=== PATIENT | male | born 1945 | race Caucasian/White ===

== ENCOUNTER 2018-04-10 18:10 | Inpatient (IN) | payer MEDICARE, BC ==
[2018-04-10] MEDS ORDERED: Sodium Chloride 0.9% 1,000 ML IV SCH (18:15)
--- NOTE | 2018-04-10 18:35 | EDM.PDOC ---
ED HPI GENERAL MEDICAL PROBLEM - General Chief Complaint: General Stated Complaint: unresponsive Time Seen by Provider: 04/10/18 18:10 Source of Information: Reports: Patient, EMS History Limitations: Reports: No Limitations - History of Present Illness INITIAL COMMENTS - FREE TEXT/NARRATIVE: This patient is a 72 year old male that arrives via EMS. Patient lives with per EMS. EMS reports that the reported the patient was fine at 1:30pm today, laid on the couch to sleep. She tried to wake him about 4pm and he would not respond. EMS reported upon their arrival BLS crew, that the patient was difficulty wake, but they were able to by yelling at him and shaking him. They report blood pressure on scene was 68/36 and BS was 105. Our EMS ALS intercepted patient. Upon arrival the patient BP is 94/52. The patient is awake and alert and oriented. The patient reports he was sleeping on his couch and he is hard of hearing. The patient denies any complaints. He denies berumen, dizziness, n, v, d, f, cp, soa, neck pain, neck stiffness, abd pain, urinary/bowel changes. EMS has reported that upon arrival to the patients home there is feces in a bucket on the floor, urine odors, and there is urine all over the couch the patient was laying on. They report the house is very messy. Onset Date: 04/10/18 Duration: Hour(s): (2) Severity: Mild Improves with: Reports: None Worsens with: Reports: None Associated Symptoms: Denies: Confusion, Chest Pain, Cough, cough w sputum, Diaphoresis, Fever/Chills, Headaches, Loss of Appetite, Malaise, Nausea/Vomiting , Rash, Seizure, Shortness of Breath, Syncope, Weakness - Related Data Allergies Allergy/AdvReac Type Severity Reaction Status Date / Time pork Allergy Hives Uncoded 04/10/18 18:25 Home Meds: Home Meds Allopurinol [Zyloprim] 300 mg PO DAILY 04/10/18 [History] Aspirin [Halfprin] 81 mg PO DAILY 04/10/18 [History] Cholecalciferol (Vitamin D3) [Vitamin D3] 2,000 unit PO DAILY 04/10/18 [History] Cyanocobalamin (Vitamin B12) [Vitamin B12] 1,000 mcg PO DAILY 04/10/18 [History] Furosemide [Lasix] 40 mg PO BID 04/10/18 [History] Gabapentin [Neurontin] 300 mg PO BID 04/10/18 [History] Insulin Aspart [Novolog Flexpen] 40 units SUBCUT TIDMEALS 04/10/18 [History] Insulin Glarg,Human.Rec.Analog [Lantus Solostar] 70 unit SUBCUT BEDTIME [History] Losartan/Hydrochlorothiazide [Hyzaar 100-12.5 Tablet] 1 tab PO DAILY 04/10/18 [ History] Metoprolol Tartrate [Lopressor] 50 mg PO DAILY 04/10/18 [History] Pioglitazone [Actos] 15 mg PO DAILY 04/10/18 [History] atorvaSTATin Calcium [Atorvastatin Calcium] 80 mg PO DAILY 04/10/18 [History] ED ROS GENERAL - Review of Systems Review Of Systems: See Below Constitutional: Reports: Weakness (generally). Denies: Fever HEENT: Reports: No Symptoms Respiratory: Reports: No Symptoms Cardiovascular: Reports: No Symptoms Endocrine: Reports: No Symptoms GI/Abdominal: Reports: No Symptoms : Reports: No Symptoms Musculoskeletal: Reports: No Symptoms Skin: Reports: No Symptoms Neurological: Reports: No Symptoms Psychiatric: Reports: No Symptoms Hematologic/Lymphatic: Reports: No Symptoms Immunologic: Reports: No Symptoms ED EXAM, GENERAL - Physical Exam Exam: See Below Exam Limited By: No Limitations General Appearance: Alert, WD/WN, No Apparent Distress, Other (Disheveled appearance. Patient has what appears to be dirt and feces under nails and on hands. Patient does have odorous smell. ) Eye Exam: Bilateral Eye: Normal Inspection, PERRL Ears: Normal External Exam, Normal Canal, Hearing Grossly Normal, Normal TMs Ear Exam: Bilateral Ear: Auricle Normal, Canal Normal, TM normal Nose: Normal Inspection, Normal Mucosa, No Blood Throat/Mouth: Normal Inspection, Normal Lips, Normal Teeth, Normal Gums, Normal Oropharynx, Normal Voice, No Airway Compromise Head: Atraumatic, Normocephalic Neck: Normal Inspection, Supple, Non-Tender, Full Range of Motion Respiratory/Chest: No Respiratory Distress, Lungs Clear, Normal Breath Sounds, No Accessory Muscle Use Cardiovascular: Normal Peripheral Pulses, Regular Rate, Rhythm, No Edema, No Gallop, No JVD, No Murmur, No Rub Peripheral Pulses: 2+: Radial (L), Radial (R), Posterior Tibial (L), Posterior Tibial (R) GI/Abdominal: Normal Bowel Sounds, Soft, Non-Tender, No Organomegaly, No Distention, No Abnormal Bruit, No Mass, Pelvis Stable (Male) Exam: Deferred Rectal (Males) Exam: Deferred Back Exam: Normal Inspection, Full Range of Motion. No: CVA Tenderness (L), CVA Tenderness (R) Extremities: Normal Inspection, Normal Range of Motion, Non-Tender, No Pedal Edema, Normal Capillary Refill Neurological: Alert, Oriented, CN II-XII Intact, Normal Cognition, No Motor/ Sensory Deficits Psychiatric: Normal Affect, Normal Mood Skin Exam: Warm, Dry, Intact, Normal Color, No Rash Lymphatic: No Adenopathy EKG INTERPRETATION EKG Date: 04/10/18 Time: 18:22 Rate (Beats/Min): 99 QRS: RBBB Course - Vital Signs Last Recorded V/S: Last Vital Signs Temp 97.9 F 04/10/18 21:00 Pulse 93 04/10/18 21:00 Resp 18 04/10/18 21:00 BP 132/43 L 04/10/18 21:00 Pulse Ox 98 04/10/18 21:00 - Orders/Labs/Meds Orders: Active Orders 24 hr Category Date Time Status Chest 2V [CR] Stat Exams 04/10/18 17:43 Taken Head wo Cont [CT] Stat Exams 04/10/18 18:22 Taken CULTURE BLOOD [BC] Stat Lab 04/10/18 18:35 Received CULTURE BLOOD [BC] Stat Lab 04/10/18 19:05 Received UA W/MICROSCOPIC [URIN] Stat Lab 04/10/18 20:26 Ordered Sodium Chloride 0.9% [Normal Saline] 1,000 ml Med 04/10/18 18:15 Active IV ASDIRECTED Blood Culture x2 Reflex Set [OM.PC] Stat Oth 04/10/18 18:22 Ordered EKG 12 Lead [EK] Routine Ther 04/10/18 17:43 Ordered Medication Orders Acetaminophen (Tylenol) 650 mg PO Q4H PRN PRN Reason: Pain (Mild 1-3)/fever Hydrocodone Bitart/Acetaminophen (Crocker 325-5 Mg) 2 tab PO Q4H PRN PRN Reason: Pain (moderate 4-6) Allopurinol (Zyloprim) 300 mg PO DAILY [facility] Aspirin (Halfprin) 81 mg PO DAILY [facility] Cyanocobalamin (Vitamin B12) 1,000 mcg PO DAILY [facility] Enoxaparin Sodium (Lovenox) 30 mg SUBCUT Q24H [facility] Furosemide (Lasix) 40 mg PO BID [facility] Gabapentin (Neurontin) 300 mg PO BID [facility] Sodium Chloride (Normal Saline) 1,000 mls @ 999 mls/hr IV ASDIRECTED [facility] Last Admin: 04/10/18 18:20 Dose: 999 mls/hr Sodium Chloride (Normal Saline) 1,000 mls @ 125 mls/hr IV ASDIRECTED [facility] Ibuprofen (Motrin) 600 mg PO Q6H PRN PRN Reason: Pain (mild 1-3) Insulin Human Regular (Novolin R) 0 unit SUBCUT QIDACANDBED [facility]; Protocol Metoprolol Tartrate (Lopressor) 50 mg PO DAILY [facility] Morphine Sulfate (Morphine) 2 mg IVPUSH Q2H PRN PRN Reason: Pain (severe 7-10) Non-Formulary Medication (Atorvastatin Calcium [Atorvastatin Calcium]) 80 mg PO DAILY [facility] Non-Formulary Medication (Cholecalciferol (Vitamin D3) [Vitamin D3]) 2,000 unit PO DAILY [facility] Non-Formulary Medication (Insulin Glarg,Human.Rec.Analog) 70 unit SUBCUT BEDTIME [facility] Non-Formulary Medication (Losartan/Hydrochlorothiazide [Hyzaar 100-12.5 Tablet] ) 1 tab PO DAILY [facility] Non-Formulary Medication (Pioglitazone [Actos]) 15 mg PO DAILY [facility] Ondansetron HCl (Zofran) 4 mg IV Q6H PRN PRN Reason: Nausea/Vomiting Temazepam (Restoril) 15 mg PO BEDTIME PRN PRN Reason: Sleep Labs: Laboratory Tests 04/10/18 04/10/18 04/10/18 Range/Units 18:15 18:15 18:35 WBC 11.2 H (5.0-10.0) 10^3/uL RBC 4.32 L (4.50-6.00) 10^6/uL Hgb 12.0 L (14.0-18.0) g/dL Hct 37.4 L (40.0-54.0) % MCV 86.6 (82.0-94.0) fL MCH 27.8 (27.0-32.0) pg MCHC 32.1 L (33.0-38.0) g/dL RDW Coeff of Howie 16.8 H (11.0-15.0) % Plt Count 184 (150-400) 10^3/uL Add Manual Diff Yes Neutrophils % (Manual) 89 H (35-85) % Band Neutrophils % 1 (0-5) % Lymphocytes % (Manual) 4 L (21-55) % Monocytes % (Manual) 5 (2-12) % Eosinophils % (Manual) 0 (0-5) % Basophils % (Manual) 1 (0-3) % ABG pH (7.35-7.45) ABG pCO2 (35-45) mm/Hg0 ABG pO2 (80-100) mm/Hg ABG HCO3 (22.0-26.0) mm/L ABG O2 Saturation (95-98) % ABG Base Excess (-2.0-3.0) O2 Delivery Device Sodium 134 L (136-145) mEq/L Potassium 3.9 (3.5-5.0) mEq/L Chloride 97 L (98-106) mEq/L Carbon Dioxide 25 (21-32) mmol/L BUN 123 H* (7-18) mg/dL Creatinine 3.6 H* (0.7-1.3) mg/dL Est Cr Clr Drug Dosing 20.34 mL/min Estimated GFR (MDRD) 17 L (>=60) mL/min Glucose 103 H (75-99) mg/dL Lactic Acid 1.7 (0.4-2.0) mmol/L Calcium 8.8 (8.4-10.1) mg/dL Total Bilirubin 0.3 (0.0-1.0) mg/dL AST 18 (15-37) U/L ALT 21 (12-78) U/L Alkaline Phosphatase 103 (46-116) U/L Lactate Dehydrogenase 80 L (100-190) U/L Creatine Kinase 73 (35-232) U/L Troponin I 0.170 H (0.00-0.06) ng/mL Total Protein 7.0 (6.4-8.2) g/dL Albumin 3.2 L (3.4-5.0) g/dL Urine Color (YELLOW) Urine Appearance (CLEAR) Urine pH (4.5-8.0) Ur Specific Colo (1.003-1.020) Urine Protein (NEGATIVE) mg/dL Urine Glucose (UA) (NEGATIVE) mg/dL Urine Ketones (NEGATIVE) mg/dL Urine Occult Blood (NEGATIVE) Urine Nitrite (NEGATIVE) Urine Bilirubin (NEGATIVE) Urine Urobilinogen (0.2-1.0) EU/dL Ur Leukocyte Esterase (NEGATIVE) Urine RBC (0-5) /HPF Urine WBC (0-5) /HPF Ur Epithelial Cells (NOT SEEN) /HPF Urine Mucus (NOT SEEN) /HPF 04/10/18 04/10/18 Range/Units 19:05 20:26 WBC (5.0-10.0) 10^3/uL RBC (4.50-6.00) 10^6/uL Hgb (14.0-18.0) g/dL Hct (40.0-54.0) % MCV (82.0-94.0) fL MCH (27.0-32.0) pg MCHC (33.0-38.0) g/dL RDW Coeff of Howie (11.0-15.0) % Plt Count (150-400) 10^3/uL Add Manual Diff Neutrophils % (Manual) (35-85) % Band Neutrophils % (0-5) % Lymphocytes % (Manual) (21-55) % Monocytes % (Manual) (2-12) % Eosinophils % (Manual) (0-5) % Basophils % (Manual) (0-3) % ABG pH 7.40 (7.35-7.45) ABG pCO2 37 (35-45) mm/Hg0 ABG pO2 81 (80-100) mm/Hg ABG HCO3 22.6 (22.0-26.0) mm/L ABG O2 Saturation 96 (95-98) % ABG Base Excess -2.0 (-2.0-3.0) O2 Delivery Device Room air Sodium (136-145) mEq/L Potassium (3.5-5.0) mEq/L Chloride (98-106) mEq/L Carbon Dioxide (21-32) mmol/L BUN (7-18) mg/dL Creatinine (0.7-1.3) mg/dL Est Cr Clr Drug Dosing mL/min Estimated GFR (MDRD) (>=60) mL/min Glucose (75-99) mg/dL Lactic Acid (0.4-2.0) mmol/L Calcium (8.4-10.1) mg/dL Total Bilirubin (0.0-1.0) mg/dL AST (15-37) U/L ALT (12-78) U/L Alkaline Phosphatase (46-116) U/L Lactate Dehydrogenase (100-190) U/L Creatine Kinase (35-232) U/L Troponin I (0.00-0.06) ng/mL Total Protein (6.4-8.2) g/dL Albumin (3.4-5.0) g/dL Urine Color Yellow (YELLOW) Urine Appearance Clear (CLEAR) Urine pH 5.5 (4.5-8.0) Ur Specific Colo 1.010 (1.003-1.020) Urine Protein Negative (NEGATIVE) mg/dL Urine Glucose (UA) Negative (NEGATIVE) mg/dL Urine Ketones Negative (NEGATIVE) mg/dL Urine Occult Blood Negative (NEGATIVE) Urine Nitrite Negative (NEGATIVE) Urine Bilirubin Negative (NEGATIVE) Urine Urobilinogen 0.2 (0.2-1.0) EU/dL Ur Leukocyte Esterase Negative (NEGATIVE) Urine RBC Not seen (0-5) /HPF Urine WBC Not seen (0-5) /HPF Ur Epithelial Cells Few H (NOT SEEN) /HPF Urine Mucus Occasional H (NOT SEEN) /HPF Meds: Medications Generic Name Dose Route Start Last Admin Trade Name Freq PRN Reason Stop Dose Admin Acetaminophen 650 mg 04/10/18 21:50 Tylenol PO Q4H PRN Pain (Mild 1-3)/fever Hydrocodone Bitart/Acetaminophen 2 tab 04/10/18 21:50 Crocker 325-5 Mg PO Q4H PRN Pain (moderate 4-6) Allopurinol 300 mg 04/11/18 08:00 Zyloprim PO DAILY [facility] Aspirin 81 mg 04/11/18 08:00 Halfprin PO DAILY [facility] Cyanocobalamin 1,000 mcg 04/11/18 08:00 Vitamin B12 PO DAILY [facility] Enoxaparin Sodium 30 mg 04/10/18 21:50 Lovenox SUBCUT Q24H [facility] Furosemide 40 mg 04/11/18 08:00 Lasix PO BID [facility] Gabapentin 300 mg 04/11/18 08:00 Neurontin PO BID [facility] Sodium Chloride 1,000 mls @ 999 mls/hr 04/10/18 18:15 04/10/18 18:20 Normal Saline IV 999 mls/hr ASDIRECTED [facility] Administration Sodium Chloride 1,000 mls @ 125 mls/hr 04/10/18 21:50 Normal Saline IV ASDIRECTED [facility] Ibuprofen 600 mg 04/10/18 21:50 Motrin PO Q6H PRN Pain (mild 1-3) Insulin Human Regular 0 unit 04/11/18 07:00 Novolin R SUBCUT QIDACANDBED [facility] Protocol Metoprolol Tartrate 50 mg 04/11/18 08:00 Lopressor PO DAILY [facility] Morphine Sulfate 2 mg 04/10/18 21:50 Morphine IVPUSH Q2H PRN Pain (severe 7-10) Non-Formulary Medication 80 mg 04/11/18 08:00 Atorvastatin Calcium [Atorvastatin Calcium] PO DAILY [facility] Non-Formulary Medication 2,000 unit 04/11/18 08:00 Cholecalciferol (Vitamin D3) [Vitamin D3] PO DAILY [facility] Non-Formulary Medication 70 unit 04/11/18 20:00 Insulin Glarg,Human.Rec.Analog SUBCUT BEDTIME [facility] Non-Formulary Medication 1 tab 04/11/18 08:00 Losartan/Hydrochlorothiazide [Hyzaar 100-12.5 Tablet] PO DAILY [facility] Non-Formulary Medication 15 mg 04/11/18 08:00 Pioglitazone [Actos] PO DAILY [facility] Ondansetron HCl 4 mg 04/10/18 21:50 Zofran IV Q6H PRN Nausea/Vomiting Temazepam 15 mg 04/10/18 21:50 Restoril PO BEDTIME PRN Sleep - Radiology Interpretation Free Text/Narrative:: CXR: No infiltrates, no cardiac enlargement, no pulmonary edema. - Re-Assessments/Exams Free Text/Narrative Re-Assessment/Exam: 04/10/18 18:51 Patient Anion gap is 12. The patient BUN today is 123, CR is 3.6. This patient has never been to our facility, I called [place] where he goes. Patient had labs drawn on April 08 and his BUN is 99 and CR was 2.5 two days ago. The patient last lab draw before that was December 2017 and BUN was 71, CR 1.85. Troponin is elevated. I believe this is elevated due to his CR, BUN elevation recently. 04/10/18 19:26 The patient here in the ER, got up on his own, used a walker, and ambulated to the bathroom to have a BM. Patient had BM all over the floor and bathroom per RN. I have reviewed labs. The patient has history of renal failure. His CR and BUn has worsened in the last 2 days. Patient is alert and oriented now in wheelchair in the room. I discussed with him keeping him here at our facility for admit, hydrating his kidneys with fluids and rechecking labs in the morning. He is okay with admit. Will admit this patient. I am also waiting on Urine to check for UTI. Departure - Departure Time of Disposition: 19:31 Disposition: Admitted As Inpatient 64 Condition: Poor Clinical Impression: Renal insufficiency, Generalized weakness, Elevated troponin Acute on chronic renal failure Qualifiers: Acute renal failure type: unspecified Chronic kidney disease stage: unspecified stage Qualified Code(s): N17.9 - Acute kidney failure, unspecified - Discharge Information - My Orders Last 24 Hours: My Active Orders 04/10/18 17:43 Chest 2V [CR] Stat EKG 12 Lead [EK] Routine 04/10/18 18:15 Sodium Chloride 0.9% [Normal Saline] 1,000 ml IV ASDIRECTED 04/10/18 18:22 Head wo Cont [CT] Stat Blood Culture x2 Reflex Set [OM.PC] Stat 04/10/18 18:35 CULTURE BLOOD [BC] Stat 04/10/18 19:05 CULTURE BLOOD [BC] Stat 04/10/18 20:26 UA W/MICROSCOPIC [URIN] Stat - Assessment/Plan Last 24 Hours: My Active Orders 04/10/18 17:43 Chest 2V [CR] Stat EKG 12 Lead [EK] Routine 04/10/18 18:15 Sodium Chloride 0.9% [Normal Saline] 1,000 ml IV ASDIRECTED 04/10/18 18:22 Head wo Cont [CT] Stat Blood Culture x2 Reflex Set [OM.PC] Stat 04/10/18 18:35 CULTURE BLOOD [BC] Stat 04/10/18 19:05 CULTURE BLOOD [BC] Stat 04/10/18 20:26 UA W/MICROSCOPIC [URIN] Stat Plan: PLEASE SEE RN NOTE FOR PFSH.
[2018-04-10 19:12] LABS: O2 DELIVERY DEVICE ROOM AIR
[2018-04-10 19:13] LABS: BICARBONATE,ARTERIAL 22.6 mm/L (22.0-26.0); O2 SATURATION ARTERIAL 96 % (95-98); PCO2 ARTERIAL 37 mm/Hg0 (35-45); PO2 ARTERIAL 81 mm/Hg (80-100)
[2018-04-10] MEDS ORDERED: Acetaminophen/HYDROcodone 325-5 MG Tab PO PRN (21:50)
[2018-04-10] MEDS ORDERED: Ondansetron 4 MG/2 ML SDV IV PRN (21:50)
[2018-04-10] MEDS ORDERED: Ibuprofen 200 MG Tab PO PRN (21:50)
[2018-04-10] MEDS ORDERED: Acetaminophen 325 MG Tab PO PRN (21:50)
[2018-04-10] MEDS ORDERED: Temazepam 15 MG Cap PO PRN (21:50)
[2018-04-10] MEDS ORDERED: Morphine 2 MG/ML Syringe IVPUSH PRN (21:50)
[2018-04-10] MEDS: Sodium Chloride 0.9% 1,000 ML IV SCH (22:16)
[2018-04-10] MEDS: Enoxaparin 30 MG/0.3 ML Syringe SUBCUT SCH (22:43)
[2018-04-11] MEDS: Sodium Chloride 0.9% 1,000 ML IV SCH (05:30)
[2018-04-11] MEDS ORDERED: Insulin Regular, Human 100 Units/ML 10 ML Vial SUBCUT SCH (07:00)
[2018-04-11] MEDS: Cholecalciferol (Vitamin D3) 1,000 Unit Tab PO SCH (07:42)
[2018-04-11] MEDS: atorvaSTATin 20 MG Tab PO SCH (07:42)
[2018-04-11] MEDS: Cyanocobalamin (Vitamin B12) 1,000 MCG Tab PO SCH (07:43)
[2018-04-11] MEDS: Furosemide 40 MG Tab PO SCH ×2 (07:43→20:03)
[2018-04-11] MEDS: Gabapentin 300 MG Cap PO SCH ×2 (07:43→20:03)
[2018-04-11] MEDS: Aspirin 81 MG Tab.EC PO SCH (07:43)
[2018-04-11] MEDS: Metoprolol Tartrate 50 MG Tab PO SCH (07:43)
[2018-04-11] MEDS: Losartan 100 MG Tab PO SCH (07:44)
[2018-04-11] MEDS ORDERED: Allopurinol 300 MG Tab PO SCH (08:00)
[2018-04-11] MEDS ORDERED: Hydrochlorothiazide 12.5 MG Cap PO SCH (08:00)
[2018-04-11] MEDS ORDERED: PIOGLITAZONE 15 MG PO SCH (08:00)
[2018-04-11] MEDS ORDERED: Insulin Aspart 100 Units/ML 3 ML Pen SUBCUT ONE (08:48)
--- NOTE | 2018-04-11 09:15 | PCM.PN ---
- General Info Date of Service: 04/11/18 Admission Dx/Problem (Free Text): Acute on chronic renal failure Functional Status: Reports: Pain Controlled, Tolerating Diet, Urinating. Denies : Ambulating - Review of Systems General: Reports: Weakness, Fatigue, Malaise. Denies: Fever HEENT: Reports: No Symptoms Pulmonary: Denies: Shortness of Breath, Cough, Sputum Cardiovascular: Denies: Chest Pain, Edema, Lightheadedness Gastrointestinal: Reports: Diarrhea (had been experiencing diarrhea at home, improved now). Denies: Abdominal Pain, Nausea, Vomiting Genitourinary: Reports: No Symptoms Musculoskeletal: Reports: Joint Pain Skin: Reports: No Symptoms Neurological: Reports: No Symptoms - Patient Data Vitals - Most Recent: Last Vital Signs Temp 98.1 F 04/11/18 07:03 Pulse 100 04/11/18 07:43 Resp 14 04/11/18 07:03 BP 140/53 L 04/11/18 07:43 Pulse Ox 95 04/11/18 07:03 Weight - Most Recent: 298 lb 9.6 oz I&O - Last 24 Hours: Intake & Output 04/10/18 04/11/18 04/11/18 22:59 06:59 14:59 Intake Total 904 Output Total 250 Balance 904 -250 Lab Results Last 24 Hours: Laboratory Results - last 24 hr 04/10/18 04/10/18 04/10/18 Range/Units 18:15 18:15 18:35 WBC 11.2 H (5.0-10.0) 10^3/uL RBC 4.32 L (4.50-6.00) 10^6/uL Hgb 12.0 L (14.0-18.0) g/dL Hct 37.4 L (40.0-54.0) % MCV 86.6 (82.0-94.0) fL MCH 27.8 (27.0-32.0) pg MCHC 32.1 L (33.0-38.0) g/dL RDW Coeff of Howie 16.8 H (11.0-15.0) % Plt Count 184 (150-400) 10^3/uL Neut % (Auto) (35-85) % Lymph % (Auto) (10-55) % [place] % (Auto) (0-16) % Eos % (Auto) (0-5) % Baso % (Auto) (0-3) % Neut # (Auto) (1.80-7.00) 10^3/uL Lymph # (Auto) (1.00-4.80) 10^3/uL [place] # (Auto) (0.00-0.80) 10^3/uL Eos # (Auto) (0.00-0.45) 10^3/uL Baso # (Auto) 10^3/uL Add Manual Diff Yes Neutrophils % (Manual) 89 H (35-85) % Band Neutrophils % 1 (0-5) % Lymphocytes % (Manual) 4 L (21-55) % Monocytes % (Manual) 5 (2-12) % Eosinophils % (Manual) 0 (0-5) % Basophils % (Manual) 1 (0-3) % ABG pH (7.35-7.45) ABG pCO2 (35-45) mm/Hg0 ABG pO2 (80-100) mm/Hg ABG HCO3 (22.0-26.0) mm/L ABG O2 Saturation (95-98) % ABG Base Excess (-2.0-3.0) O2 Delivery Device Sodium 134 L (136-145) mEq/L Potassium 3.9 (3.5-5.0) mEq/L Chloride 97 L (98-106) mEq/L Carbon Dioxide 25 (21-32) mmol/L BUN 123 H* (7-18) mg/dL Creatinine 3.6 H* (0.7-1.3) mg/dL Est Cr Clr Drug Dosing 20.34 mL/min Estimated GFR (MDRD) 17 L (>=60) mL/min Glucose 103 H (75-99) mg/dL POC Glucose (75-105) mg/dl Lactic Acid 1.7 (0.4-2.0) mmol/L Calcium 8.8 (8.4-10.1) mg/dL Total Bilirubin 0.3 (0.0-1.0) mg/dL AST 18 (15-37) U/L ALT 21 (12-78) U/L Alkaline Phosphatase 103 (46-116) U/L Lactate Dehydrogenase 80 L (100-190) U/L Creatine Kinase 73 (35-232) U/L Troponin I 0.170 H (0.00-0.06) ng/mL Total Protein 7.0 (6.4-8.2) g/dL Albumin 3.2 L (3.4-5.0) g/dL Urine Color (YELLOW) Urine Appearance (CLEAR) Urine pH (4.5-8.0) Ur Specific [place] (1.003-1.020) Urine Protein (NEGATIVE) mg/dL Urine Glucose (UA) (NEGATIVE) mg/dL Urine Ketones (NEGATIVE) mg/dL Urine Occult Blood (NEGATIVE) Urine Nitrite (NEGATIVE) Urine Bilirubin (NEGATIVE) Urine Urobilinogen (0.2-1.0) EU/dL Ur Leukocyte Esterase (NEGATIVE) Urine RBC (0-5) /HPF Urine WBC (0-5) /HPF Ur Epithelial Cells (NOT SEEN) /HPF Urine Mucus (NOT SEEN) /HPF 04/10/18 04/10/18 04/11/18 Range/Units 19:05 20:26 07:00 WBC 7.8 (5.0-10.0) 10^3/uL RBC 4.17 L (4.50-6.00) 10^6/uL Hgb 11.7 L (14.0-18.0) g/dL Hct 36.3 L (40.0-54.0) % MCV 87.1 (82.0-94.0) fL MCH 28.1 (27.0-32.0) pg MCHC 32.2 L (33.0-38.0) g/dL RDW Coeff of Howie 16.8 H (11.0-15.0) % Plt Count 170 (150-400) 10^3/uL Neut % (Auto) 77.2 (35-85) % Lymph % (Auto) 9.8 L (10-55) % [place] % (Auto) 11.2 (0-16) % Eos % (Auto) 1.5 (0-5) % Baso % (Auto) 0.3 (0-3) % Neut # (Auto) 6.01 (1.80-7.00) 10^3/uL Lymph # (Auto) 0.76 L (1.00-4.80) 10^3/uL [place] # (Auto) 0.87 H (0.00-0.80) 10^3/uL Eos # (Auto) 0.12 (0.00-0.45) 10^3/uL Baso # (Auto) 0.02 10^3/uL Add Manual Diff Neutrophils % (Manual) (35-85) % Band Neutrophils % (0-5) % Lymphocytes % (Manual) (21-55) % Monocytes % (Manual) (2-12) % Eosinophils % (Manual) (0-5) % Basophils % (Manual) (0-3) % ABG pH 7.40 (7.35-7.45) ABG pCO2 37 (35-45) mm/Hg0 ABG pO2 81 (80-100) mm/Hg ABG HCO3 22.6 (22.0-26.0) mm/L ABG O2 Saturation 96 (95-98) % ABG Base Excess -2.0 (-2.0-3.0) O2 Delivery Device Room air Sodium (136-145) mEq/L Potassium (3.5-5.0) mEq/L Chloride (98-106) mEq/L Carbon Dioxide (21-32) mmol/L BUN (7-18) mg/dL Creatinine (0.7-1.3) mg/dL Est Cr Clr Drug Dosing mL/min Estimated GFR (MDRD) (>=60) mL/min Glucose (75-99) mg/dL POC Glucose (75-105) mg/dl Lactic Acid (0.4-2.0) mmol/L Calcium (8.4-10.1) mg/dL Total Bilirubin (0.0-1.0) mg/dL AST (15-37) U/L ALT (12-78) U/L Alkaline Phosphatase (46-116) U/L Lactate Dehydrogenase (100-190) U/L Creatine Kinase (35-232) U/L Troponin I (0.00-0.06) ng/mL Total Protein (6.4-8.2) g/dL Albumin (3.4-5.0) g/dL Urine Color Yellow (YELLOW) Urine Appearance Clear (CLEAR) Urine pH 5.5 (4.5-8.0) Ur Specific [place] 1.010 (1.003-1.020) Urine Protein Negative (NEGATIVE) mg/dL Urine Glucose (UA) Negative (NEGATIVE) mg/dL Urine Ketones Negative (NEGATIVE) mg/dL Urine Occult Blood Negative (NEGATIVE) Urine Nitrite Negative (NEGATIVE) Urine Bilirubin Negative (NEGATIVE) Urine Urobilinogen 0.2 (0.2-1.0) EU/dL Ur Leukocyte Esterase Negative (NEGATIVE) Urine RBC Not seen (0-5) /HPF Urine WBC Not seen (0-5) /HPF Ur Epithelial Cells Few H (NOT SEEN) /HPF Urine Mucus Occasional H (NOT SEEN) /HPF 04/11/18 04/11/18 Range/Units 07:00 07:55 WBC (5.0-10.0) 10^3/uL RBC (4.50-6.00) 10^6/uL Hgb (14.0-18.0) g/dL Hct (40.0-54.0) % MCV (82.0-94.0) fL MCH (27.0-32.0) pg MCHC (33.0-38.0) g/dL RDW Coeff of Howie (11.0-15.0) % Plt Count (150-400) 10^3/uL Neut % (Auto) (35-85) % Lymph % (Auto) (10-55) % [place] % (Auto) (0-16) % Eos % (Auto) (0-5) % Baso % (Auto) (0-3) % Neut # (Auto) (1.80-7.00) 10^3/uL Lymph # (Auto) (1.00-4.80) 10^3/uL [place] # (Auto) (0.00-0.80) 10^3/uL Eos # (Auto) (0.00-0.45) 10^3/uL Baso # (Auto) 10^3/uL Add Manual Diff Neutrophils % (Manual) (35-85) % Band Neutrophils % (0-5) % Lymphocytes % (Manual) (21-55) % Monocytes % (Manual) (2-12) % Eosinophils % (Manual) (0-5) % Basophils % (Manual) (0-3) % ABG pH (7.35-7.45) ABG pCO2 (35-45) mm/Hg0 ABG pO2 (80-100) mm/Hg ABG HCO3 (22.0-26.0) mm/L ABG O2 Saturation (95-98) % ABG Base Excess (-2.0-3.0) O2 Delivery Device Sodium 137 (136-145) mEq/L Potassium 3.3 L (3.5-5.0) mEq/L Chloride 100 (98-106) mEq/L Carbon Dioxide 27 (21-32) mmol/L BUN 102 H* (7-18) mg/dL Creatinine 2.4 H (0.7-1.3) mg/dL Est Cr Clr Drug Dosing 30.52 mL/min Estimated GFR (MDRD) 27 L (>=60) mL/min Glucose 149 H D (75-99) mg/dL POC Glucose 152 H (75-105) mg/dl Lactic Acid (0.4-2.0) mmol/L Calcium 8.9 (8.4-10.1) mg/dL Total Bilirubin (0.0-1.0) mg/dL AST (15-37) U/L ALT (12-78) U/L Alkaline Phosphatase (46-116) U/L Lactate Dehydrogenase (100-190) U/L Creatine Kinase (35-232) U/L Troponin I (0.00-0.06) ng/mL Total Protein (6.4-8.2) g/dL Albumin (3.4-5.0) g/dL Urine Color (YELLOW) Urine Appearance (CLEAR) Urine pH (4.5-8.0) Ur Specific [place] (1.003-1.020) Urine Protein (NEGATIVE) mg/dL Urine Glucose (UA) (NEGATIVE) mg/dL Urine Ketones (NEGATIVE) mg/dL Urine Occult Blood (NEGATIVE) Urine Nitrite (NEGATIVE) Urine Bilirubin (NEGATIVE) Urine Urobilinogen (0.2-1.0) EU/dL Ur Leukocyte Esterase (NEGATIVE) Urine RBC (0-5) /HPF Urine WBC (0-5) /HPF Ur Epithelial Cells (NOT SEEN) /HPF Urine Mucus (NOT SEEN) /HPF Med Orders - Current: Current Medications Acetaminophen (Tylenol) 650 mg PO Q4H PRN PRN Reason: Pain (Mild 1-3)/fever Hydrocodone Bitart/Acetaminophen ([place] 325-5 Mg) 2 tab PO Q4H PRN PRN Reason: Pain (moderate 4-6) Allopurinol (Zyloprim) 300 mg PO DAILY [facility] Last Admin: 04/11/18 07:43 Dose: 300 mg Aspirin (Halfprin) 81 mg PO DAILY [facility] Last Admin: 04/11/18 07:43 Dose: 81 mg Atorvastatin Calcium (Lipitor) 80 mg PO DAILY [facility] Last Admin: 04/11/18 07:42 Dose: 80 mg Cholecalciferol (Vitamin D3) 2,000 units PO DAILY [facility] Last Admin: 04/11/18 07:42 Dose: 2,000 units Cyanocobalamin (Vitamin B12) 1,000 mcg PO DAILY [facility] Last Admin: 04/11/18 07:43 Dose: 1,000 mcg Enoxaparin Sodium (Lovenox) 30 mg SUBCUT Q24H [facility] Last Admin: 04/10/18 22:43 Dose: Not Given Furosemide (Lasix) 40 mg PO BID [facility] Last Admin: 04/11/18 07:43 Dose: 40 mg Gabapentin (Neurontin) 300 mg PO BID [facility] Last Admin: 04/11/18 07:43 Dose: 300 mg Hydrochlorothiazide (Hydrochlorothiazide) 12.5 mg PO DAILY [facility] Last Admin: 04/11/18 07:43 Dose: 12.5 mg Sodium Chloride (Normal Saline) 1,000 mls @ 999 mls/hr IV ASDIRECTED [facility] Last Admin: 04/10/18 18:20 Dose: 999 mls/hr Sodium Chloride (Normal Saline) 1,000 mls @ 125 mls/hr IV ASDIRECTED [facility] Last Admin: 04/11/18 05:30 Dose: 125 mls/hr Ibuprofen (Motrin) 600 mg PO Q6H PRN PRN Reason: Pain (mild 1-3) Insulin Aspart (Novolog) 0 unit SUBCUT TIDMEALS [facility]; Protocol Insulin Detemir (Levemir) 0 unit SUBCUT BEDTIME [facility] Losartan Potassium (Cozaar) 100 mg PO DAILY [facility] Last Admin: 04/11/18 07:44 Dose: 100 mg Metoprolol Tartrate (Lopressor) 50 mg PO DAILY [facility] Last Admin: 04/11/18 07:43 Dose: 50 mg Morphine Sulfate (Morphine) 2 mg IVPUSH Q2H PRN PRN Reason: Pain (severe 7-10) Non-Formulary Medication (Pioglitazone [Actos]) 15 mg PO DAILY [facility] Ondansetron HCl (Zofran) 4 mg IV Q6H PRN PRN Reason: Nausea/Vomiting Temazepam (Restoril) 15 mg PO BEDTIME PRN PRN Reason: Sleep Discontinued Medications Insulin Aspart (Novolog) 20 unit SUBCUT ONETIME ONE Stop: 04/11/18 08:49 Insulin Human Regular (Novolin R) 0 unit SUBCUT QIDACANDBED [facility]; Protocol Last Admin: 04/11/18 08:49 Dose: Not Given - Exam General: Alert, Oriented HEENT: Mucous Membr. Moist/[place] Neck: Supple Lungs: Clear to Auscultation, Normal Respiratory Effort Cardiovascular: Regular Rate, Regular Rhythm GI/Abdominal Exam: Normal Bowel Sounds, Soft, Non-Tender Extremities: No Pedal Edema Skin: Warm, Dry Neurological: No New Focal Deficit - Problem List & Annotations (1) Acute on chronic renal failure SNOMED Code(s): 144169208 Code(s): N17.9 - ACUTE KIDNEY FAILURE, UNSPECIFIED; N18.9 - CHRONIC KIDNEY DISEASE, UNSPECIFIED Status: Acute Priority: High Current Visit: Yes Qualifiers: Acute renal failure type: unspecified Chronic kidney disease stage: unspecified stage Qualified Code(s): N17.9 - Acute kidney failure, unspecified ; N18.9 - Chronic kidney disease, unspecified (2) Generalized weakness SNOMED Code(s): 05302991 Code(s): R53.1 - WEAKNESS Status: Acute Priority: High Current Visit: Yes - Problem List Review Problem List Initiated/Reviewed/Updated: Yes - My Orders Last 24 Hours: My Active Orders 04/11/18 09:04 Consult to Physical Therapy [PT Evaluation and Treatment] [CONS] Routine 04/11/18 12:00 Insulin Aspart [NovoLOG] See Protocol SUBCUT TIDMEALS - Assessment Assessment:: Acute on chronic renal failure Weakness - Plan Plan:: Patient states he feels good this am. He believes his unresponsiveness yesterday was related to a low blood sugar. Reports that he has a BS in the 50s yesterday am. Also had been experiencing diarrhea. Was seen in [facility] 2 days prior and had labs, creatinine was 2.5 at that time. He states he is supposed to see Dr. Gagnon today as he is scheduled for a total knee replacement of his left knee. Lab today shows a normal WBC of 7.8. Creatinine is down to 2.4. Potassium 3.3. His chronic renal failure range is a creatinine of 1.85- 2.4. Per report, home was noted to have buckets of BM. Urine incontinence on couch. House was very messy. Will have social worker delinquency prevention evaluate this and home safety. Very unkempt. Incontinent of bowel here. Will repeat labs in am. Reduce IV rate. Sliding scale for insulin. Reevaluate in am.
[2018-04-11] MEDS: Sodium Chloride 0.45% with KCl 1,000 ML IV SCH (10:47)
[2018-04-11] MEDS: Insulin Aspart 100 Units/ML 3 ML Pen SUBCUT SCH ×2 (12:09→17:13)
[2018-04-11] MEDS ORDERED: Insulin Detemir 100 Units/ML 3 ML Pen SUBCUT SCH (20:00)
[2018-04-11] MEDS: Gabapentin 100 MG Cap PO SCH (20:03)
[2018-04-11] MEDS: Enoxaparin 30 MG/0.3 ML Syringe SUBCUT SCH (21:53)
[2018-04-12] MEDS: Sodium Chloride 0.45% with KCl 1,000 ML IV SCH (00:11)
[2018-04-12] MEDS: Gabapentin 100 MG Cap PO SCH (07:35)
[2018-04-12] MEDS: atorvaSTATin 20 MG Tab PO SCH (07:35)
[2018-04-12] MEDS: Gabapentin 300 MG Cap PO SCH (07:35)
[2018-04-12] MEDS: Cholecalciferol (Vitamin D3) 1,000 Unit Tab PO SCH (07:36)
[2018-04-12] MEDS: Furosemide 40 MG Tab PO SCH (07:36)
[2018-04-12] MEDS: Cyanocobalamin (Vitamin B12) 1,000 MCG Tab PO SCH (07:36)
[2018-04-12] MEDS: Losartan 100 MG Tab PO SCH (07:36)
[2018-04-12] MEDS: Metoprolol Tartrate 50 MG Tab PO SCH (07:36)
[2018-04-12] MEDS: Aspirin 81 MG Tab.EC PO SCH (07:36)
[2018-04-12] MEDS: Insulin Aspart 100 Units/ML 3 ML Pen SUBCUT SCH (07:53)
[2018-04-12] MEDS ORDERED: Allopurinol 100 MG Tab PO SCH (08:00)
--- NOTE | 2018-04-12 22:06 | PCM.DCSUM1 ---
Discharge Summary - Hospital Course Free Text/Narrative:: Patient presented to ED after an unresponsive episode at home. Significant other called 911 as she was unable to arouse patient while he was lying on the couch. Patient believes could have been related to a low blood sugar but also feels he could have been just sleeping hard and is hard of hearing. EMS noted home was very unkempt. Had buckets of BM in the home, patient incontinent of urine and couch was soiled. He had been to see his primary provider Dr. Azevedo on Wednesday, states blood sugar that day was in the 50s. Had labs drawn at that appointment but has not heard back on those. ER work up did show acute on chronic renal failure. Creatinine was elevated at 3.6. Favio Shell had contacted the [facility] where it was noted that his creatinine that Wednesday was 2.5 with a prior one at 1.85. Patient had been experiencing loose stools as of late. Admitted and started on IV fluids. - Discharge Data Discharge Date: 04/12/18 Discharge Disposition: Home, Self-Care 01 Condition: Good - Discharge Diagnosis/Problem(s) (1) Acute on chronic renal failure SNOMED Code(s): 858825866 ICD Code: N17.9 - ACUTE KIDNEY FAILURE, UNSPECIFIED; N18.9 - CHRONIC KIDNEY DISEASE, UNSPECIFIED Status: Acute Priority: High Qualifiers: Acute renal failure type: unspecified Chronic kidney disease stage: unspecified stage Qualified Code(s): N17.9 - Acute kidney failure, unspecified ; N18.9 - Chronic kidney disease, unspecified (2) Generalized weakness SNOMED Code(s): 00803325 ICD Code: R53.1 - WEAKNESS Status: Acute Priority: High - Patient Summary/Data Complications: none Consults: Consultations 04/10/18 21:50 Consult to Vendor Management Associate [CONS] Routine 04/11/18 09:04 Consult to Physical Therapy [PT Evaluation and Treatment] [CONS] Routine Hospital Course: Patient has had good improvement of his kidney function. With IV fluid replacement, creatinine improved yesterday to 2.4. Medication adjustments have been made. HCTZ has been discontinued. Allopurinol reduced to 100 mg daily. Gabapentin reduced to 200 mg BID and his creatinine today is improved to 1.6. Blood sugars have been running around 150-200. WBC and Hgb have been stable. Potassium has stabilized to normal range. Vital signs stable. Patient is oriented. Unsteady at times with ambulation. Patient has had incontinence of stool while here. Concerns for home safety due to being unsteady. Reports of home being very unkempt. Has a frail roommate. Neighbor does look in on them often and provides assistance as needed. Does given himself his insulin shots. Medications packaged for him at [employer]. retail services professional aware, will contact adult protective services due to concerns of vulnerable adult. - Patient Instructions Diet: Diabetic Diet Activity: As Tolerated - Discharge Plan Prescriptions/Med Rec: Allopurinol [Zyloprim] 100 mg PO DAILY #30 tablet Gabapentin [Neurontin] 200 mg PO BID #60 capsule Losartan [Cozaar] 100 mg PO DAILY #30 tablet Home Medications: Home Meds Aspirin [Halfprin] 81 mg PO DAILY 04/10/18 [History] Cholecalciferol (Vitamin D3) [Vitamin D3] 2,000 unit PO DAILY 04/10/18 [History] Cyanocobalamin (Vitamin B12) [Vitamin B12] 1,000 mcg PO DAILY 04/10/18 [History] Furosemide [Lasix] 40 mg PO BID 04/10/18 [History] Insulin Aspart [Novolog Flexpen] 40 units SUBCUT TIDMEALS 04/10/18 [History] Insulin Glarg,Human.Rec.Analog [Lantus Solostar] 70 unit SUBCUT BEDTIME [History] Metoprolol Tartrate [Lopressor] 50 mg PO DAILY 04/10/18 [History] Pioglitazone [Actos] 15 mg PO DAILY 04/10/18 [History] atorvaSTATin Calcium [Atorvastatin Calcium] 80 mg PO DAILY 04/10/18 [History] Allopurinol [Zyloprim] 100 mg PO DAILY #30 tablet 04/12/18 [Rx] Gabapentin [Neurontin] 200 mg PO BID #60 capsule 04/12/18 [Rx] Losartan [Cozaar] 100 mg PO DAILY #30 tablet 04/12/18 [Rx] Patient Handouts: Acute Kidney Injury, Adult, Chronic Kidney Disease, Adult Forms: ED Department Discharge Referrals: Epi Azevedo MD [Consulting Physician] - (Follow up with Dr. Azevedo in one week. ) - Discharge Summary/Plan Comment DC Time >30 min.: No Discharge Summary/Plan Comment: Discharge home Continue with lower doses of Allopurinol, Gabapentin. Stop HCTZ. Follow up with Dr. Azevedo next week, suggest follow up lab at that time. - General Info Date of Service: 04/12/18 Admission Dx/Problem (Free Text: Acute on chronic renal failure Functional Status: Reports: Pain Controlled, Tolerating Diet, Ambulating, Urinating - Review of Systems General: Reports: Weakness, Fatigue. Denies: Fever HEENT: Reports: No Symptoms Pulmonary: Denies: Shortness of Breath, Cough Cardiovascular: Denies: Chest Pain, Edema, Lightheadedness Gastrointestinal: Reports: Diarrhea. Denies: Abdominal Pain, Nausea, Vomiting Genitourinary: Reports: No Symptoms Musculoskeletal: Reports: Joint Pain Skin: Reports: No Symptoms Neurological: Reports: Weakness - Patient Data Vitals - Most Recent: Last Vital Signs Temp 96.0 F 04/12/18 11:26 Pulse 65 04/12/18 11:26 Resp 18 04/12/18 11:26 BP 130/49 L 04/12/18 11:26 Pulse Ox 97 04/12/18 11:26 Weight - Most Recent: 298 lb 9.6 oz I&O - Last 24 hours: Intake & Output 04/12/18 04/12/18 04/12/18 06:59 14:59 22:59 Intake Total 1000 Balance 1000 Lab Results - Last 24 hrs: Laboratory Results - last 24 hr 04/12/18 04/12/18 04/12/18 Range/Units 07:15 07:15 07:41 WBC 7.1 (5.0-10.0) 10^3/uL RBC 4.51 (4.50-6.00) 10^6/uL Hgb 12.7 L (14.0-18.0) g/dL Hct 38.9 L (40.0-54.0) % MCV 86.3 (82.0-94.0) fL MCH 28.2 (27.0-32.0) pg MCHC 32.6 L (33.0-38.0) g/dL RDW Coeff of Howie 16.8 H (11.0-15.0) % Plt Count 181 (150-400) 10^3/uL Neut % (Auto) 71.0 (35-85) % Lymph % (Auto) 14.1 (10-55) % [place] % (Auto) 10.7 (0-16) % Eos % (Auto) 3.4 (0-5) % Baso % (Auto) 0.8 (0-3) % Neut # (Auto) 5.04 (1.80-7.00) 10^3/uL Lymph # (Auto) 1.00 (1.00-4.80) 10^3/uL [place] # (Auto) 0.76 (0.00-0.80) 10^3/uL Eos # (Auto) 0.24 (0.00-0.45) 10^3/uL Baso # (Auto) 0.06 10^3/uL Sodium 138 (136-145) mEq/L Potassium 3.5 (3.5-5.0) mEq/L Chloride 101 (98-106) mEq/L Carbon Dioxide 30 (21-32) mmol/L BUN 64 H (7-18) mg/dL Creatinine 1.6 H (0.7-1.3) mg/dL Est Cr Clr Drug Dosing 45.78 mL/min Estimated GFR (MDRD) 42 L (>=60) mL/min Glucose 151 H (75-99) mg/dL POC Glucose 150 H (75-105) mg/dl Calcium 9.2 (8.4-10.1) mg/dL / Range/Units 11:38 WBC (5.0-10.0) 10^3/uL RBC (4.50-6.00) 10^6/uL Hgb (14.0-18.0) g/dL Hct (40.0-54.0) % MCV (82.0-94.0) fL MCH (27.0-32.0) pg MCHC (33.0-38.0) g/dL RDW Coeff of Howie (11.0-15.0) % Plt Count (150-400) 10^3/uL Neut % (Auto) (35-85) % Lymph % (Auto) (10-55) % [place] % (Auto) (0-16) % Eos % (Auto) (0-5) % Baso % (Auto) (0-3) % Neut # (Auto) (1.80-7.00) 10^3/uL Lymph # (Auto) (1.00-4.80) 10^3/uL [place] # (Auto) (0.00-0.80) 10^3/uL Eos # (Auto) (0.00-0.45) 10^3/uL Baso # (Auto) 10^3/uL Sodium (136-145) mEq/L Potassium (3.5-5.0) mEq/L Chloride (98-106) mEq/L Carbon Dioxide (21-32) mmol/L BUN (7-18) mg/dL Creatinine (0.7-1.3) mg/dL Est Cr Clr Drug Dosing mL/min Estimated GFR (MDRD) (>=60) mL/min Glucose (75-99) mg/dL POC Glucose 201 H (75-105) mg/dl Calcium (8.4-10.1) mg/dL SUE Results - Last 24 hrs: Microbiology 04/10/18 19:05 Aerobic Blood Culture - Preliminary Blood - Venous - Lab Draw NO GROWTH AFTER 2 DAYS Anaerobic Blood Culture - Preliminary NO GROWTH AFTER 2 DAYS 04/10/18 18:35 Aerobic Blood Culture - Preliminary Blood - Venous NO GROWTH AFTER 2 DAYS Anaerobic Blood Culture - Preliminary NO GROWTH AFTER 2 DAYS Med Orders - Current: Current Medications Discontinued Medications Acetaminophen (Tylenol) 650 mg PO Q4H PRN PRN Reason: Pain (Mild 1-3)/fever Hydrocodone Bitart/Acetaminophen ([place] 325-5 Mg) 2 tab PO Q4H PRN PRN Reason: Pain (moderate 4-6) Allopurinol (Zyloprim) 300 mg PO DAILY [facility] Last Admin: 04/11/18 07:43 Dose: 300 mg Allopurinol (Zyloprim) 100 mg PO DAILY [facility] Last Admin: 04/12/18 07:35 Dose: 100 mg Aspirin (Halfprin) 81 mg PO DAILY [facility] Last Admin: 04/12/18 07:36 Dose: 81 mg Atorvastatin Calcium (Lipitor) 80 mg PO DAILY [facility] Last Admin: 04/12/18 07:35 Dose: 80 mg Cholecalciferol (Vitamin D3) 2,000 units PO DAILY [facility] Last Admin: 04/12/18 07:36 Dose: 2,000 units Cyanocobalamin (Vitamin B12) 1,000 mcg PO DAILY [facility] Last Admin: 04/12/18 07:36 Dose: 1,000 mcg Enoxaparin Sodium (Lovenox) 30 mg SUBCUT Q24H [facility] Last Admin: 04/11/18 21:53 Dose: 30 mg Furosemide (Lasix) 40 mg PO BID [facility] Last Admin: 04/12/18 07:36 Dose: 40 mg Gabapentin (Neurontin) 300 mg PO BID [facility] Last Admin: 04/12/18 07:35 Dose: 300 mg Gabapentin (Neurontin) 200 mg PO BID [facility] Last Admin: 04/12/18 07:35 Dose: 200 mg Hydrochlorothiazide (Hydrochlorothiazide) 12.5 mg PO DAILY [facility] Last Admin: 04/11/18 07:43 Dose: 12.5 mg Sodium Chloride (Normal Saline) 1,000 mls @ 999 mls/hr IV ASDIRECTED [facility] Last Admin: 04/10/18 18:20 Dose: 999 mls/hr Sodium Chloride (Normal Saline) 1,000 mls @ 125 mls/hr IV ASDIRECTED [facility] Last Admin: 04/11/18 05:30 Dose: 125 mls/hr Potassium Chloride/Sodium Chloride (1/2 Ns With 20 Meq Kcl) 1,000 mls @ 75 mls/ hr IV ASDIRECTED [facility] Last Admin: 04/12/18 00:11 Dose: 75 mls/hr Ibuprofen (Motrin) 600 mg PO Q6H PRN PRN Reason: Pain (mild 1-3) Insulin Aspart (Novolog) 20 unit SUBCUT ONETIME ONE Stop: 04/11/18 08:49 Last Admin: 04/11/18 09:05 Dose: Not Given Insulin Aspart (Novolog) 0 unit SUBCUT TIDMEALS [facility]; Protocol Last Admin: 04/12/18 07:53 Dose: Not Given Insulin Detemir (Levemir) 0 unit SUBCUT BEDTIME [facility] Last Admin: 04/11/18 20:06 Dose: 70 unit Insulin Human Regular (Novolin R) 0 unit SUBCUT QIDACANDBED [facility]; Protocol Last Admin: 04/11/18 08:49 Dose: Not Given Losartan Potassium (Cozaar) 100 mg PO DAILY [facility] Last Admin: 04/12/18 07:36 Dose: 100 mg Metoprolol Tartrate (Lopressor) 50 mg PO DAILY [facility] Last Admin: 04/12/18 07:36 Dose: 50 mg Morphine Sulfate (Morphine) 2 mg IVPUSH Q2H PRN PRN Reason: Pain (severe 7-10) Non-Formulary Medication (Pioglitazone [Actos]) 15 mg PO DAILY [facility] Last Admin: 04/12/18 12:30 Dose: Not Given Ondansetron HCl (Zofran) 4 mg IV Q6H PRN PRN Reason: Nausea/Vomiting Temazepam (Restoril) 15 mg PO BEDTIME PRN PRN Reason: Sleep - Exam General: Reports: Alert, Oriented HEENT: Reports: Mucous Membr. Moist/[place] Neck: Reports: Supple Lungs: Reports: Clear to Auscultation, Normal Respiratory Effort Cardiovascular: Reports: Regular Rate, Regular Rhythm GI/Abdominal Exam: Normal Bowel Sounds, Soft, Non-Tender Skin: Reports: Warm, Dry Neurological: Reports: No New Focal Deficit
== END 2018-04-12 12:15 | disposition home or self-care (01) | DRG 684 ==
LOC: EDBD → EDUNIT# → CC.ED 18:10 → CC.MS 20:48 → UNDOADMIN 20:48 → CC.MS 21:26
PROVIDERS: ADMIT Nurse Practitioner; ATTEND Family Medicine
DX: N17.9 Acute kidney failure, unspecified (principal); N18.9 Chronic kidney disease, unspecified; R94.39 Abnormal result of other cardiovascular function study; R15.9 Full incontinence of feces; I45.10 Unspecified right bundle-branch block; H91.90 Unspecified hearing loss, unspecified ear; E16.2 Hypoglycemia, unspecified; Z79.899 Other long term (current) drug therapy; Z79.4 Long term (current) use of insulin; Z79.82 Long term (current) use of aspirin
CPT/HCPCS: 36415; 36600; 70450; 71046; 80048; 80053; 81001; 82550; 82803; 82962; 83605; 83615; 84484; 85025; 87040; 93005; 93010; 96360; 96361; 97161-GP; 99285; A9270-GY; J1650; J1815-GY; J3480; J7030